=== PATIENT | female | born 1985 | race Caucasian/White ===

== ENCOUNTER 2020-04-08 22:27 | Emergency (ER) | payer OTHER ==
[~2020-04-08] VITALS: Ht 157.5 cm; Wt 113.4 kg
[2020-04-08] MEDS ORDERED: PEPCID40 MG PO (22:51)
[2020-04-08] MEDS ORDERED: ESCITALOPRAM OX10 MG PO (22:52)
[2020-04-08] MEDS ORDERED: METFORMIN HCL500 M3 PO (22:52)
[2020-04-08] MEDS ORDERED: HYDROXYZINE PAM25 M1 PO (22:53)
[2020-04-08] MEDS ORDERED: NORCO 5-325 TA1 EAC2 PO (23:20)
[2020-04-08] MEDS ORDERED: FLEXERIL PO (23:20)
[2020-04-09 00:26] VITALS: BP 129/66
== END 2020-04-09 00:26 | disposition home or self-care (01) ==
LOC: M.ERS 22:27
DX: S16.1XXA Strain of muscle, fascia and tendon at neck level, initial encounter (principal); E78.5 Hyperlipidemia, unspecified; Z88.8 Allergy status to other drugs, medicaments and biological substances; Z98.890 Other specified postprocedural states; V49.49XA Driver injured in collision with other motor vehicles in traffic accident, initial encounter; Y93.89 Activity, other specified; Y92.89 Other specified places as the place of occurrence of the external cause; Y99.8 Other external cause status